=== PATIENT | female | born 1985 | race Caucasian/White ===

== ENCOUNTER 2022-04-29 08:05 | Emergency (ER) | payer OTHER, SELFPAY ==
[2022-04-29 09:04] VITALS: BP 117/78; PULSE 85; RESP 20; TEMP 36.4; O2SAT 99; BMI 42.0
[2022-04-29 09:19] LABS: Appearance Urine Clear; Color Urine Yellow; Glucose Urine UA Negative (Negative); Leukocyte Esterase Urine Trace (Negative); Nitrite Urine Negative (Negative); Specific Gravity - Urine 1.015 (1.005-1.025); UMIC TRIGGER UACC YES; Urine Blood Small (1+) (Negative); Urine Ketones Negative (Negative); Urine Protein Negative (Neg-Trace)
[2022-04-29 09:31] LABS: Bacteria Urine Trace (None Seen); Hyaline Casts Urine 0-2 /LPF (0-2); UACC Culture Trigger YES
--- NOTE | 2022-04-29 10:41 | ED.FEMALEGU ---
HPI - Female Genitourinary General Chief complaint: Urogenital-Female Stated complaint: Lower back pain Time Seen by Provider: 04/29/22 10:40 Source: patient Mode of arrival: ambulatory Limitations: no limitations History of Present Illness HPI Narrative: 36 yo female presents to the ER for evaluation of foul smelling urine for the last 1 week associated with mild dysuria, left sided back pain and nausea. She states her symptoms started with foul-smelling urine about 1 week ago. She states she intermittently has some dysuria as well in addition to some urinary frequency. She is intermittently nauseous. Yesterday she started with left lower back pain as well. No abdominal pain. No vomiting. No fevers. Denies chance of . No vaginal discharge. She states the back pain is intermittent and feels like a bruise. MD elicited complaint: dysuria and back pain Onset (ago): week(s) (1) Location of symptoms: suprapubic and other (back) Severity: moderate Female Urogenital Radiation: Non-Radiating Severity scale (1-10): 5 Quality of pain: aching Consistency: intermittent Vaginal discharge: none Vaginal bleeding: none Urinary symptoms: Dysuria, Frequency and Foul Smelling Urine Exacerbating factors: urination Relieving factors: none and urination Associated symptoms: nausea and back pain Treatment prior to arrival: none Patient : No Related Data Previous Rx's Medication Instructions Recorded levofloxacin 500 mg tablet 500 mg PO DAILY #9 tabs 04/29/22 Allergies Allergy/AdvReac Type Severity Reaction Status Date / Time No Known Allergies Allergy Verified 04/29/22 09:10 [No Known Allergies*] Review of Systems Review of Systems: Constitutional: No Fever, No Chills ENT/Mouth: No sore throat, No Rhinorrhea Cardiovascular: No Chest Pain, No SOB Respiratory: No Cough, No Sputum Gastrointestinal: + Nausea, No Vomiting, No Diarrhea, No abdominal Pain Genitourinary: + Dysuria, + Urinary Frequency, No Hematuria Musculoskeletal: No joint pain, + Myalgias Skin: No Skin Lesions, No rash Neuro: No Weakness, No Dizziness, No Headache Heme/Lymph: No Bruising, No Lymphadenopathy PMFSH Social History Social History Advance Directives: No Advance Directives Information Provided: No Physical Exam Vital Signs: Vital Signs: Last Vital Signs Temp 97.5 F 04/29/22 09:04 Pulse 85 04/29/22 09:04 Resp 20 04/29/22 09:04 BP 117/78 04/29/22 09:04 Pulse Ox 99 04/29/22 09:04 O2 Del Method 04/29/22 09:04 BMI result Body Mass Index 42.0 Appearance: Alert. Oriented X3. No acute distress. Eyes: Pupils equal, round and reactive to light. ENT: Pharynx normal. Neck: Normal inspection. Neck supple. CVS: Normal heart rate and rhythm. Pulses normal. Respiratory: No respiratory distress. Breath sounds normal. Abdomen: Obese, Soft and nontender. +BS x4. Mild CVA tenderness on the left side, left sided lumbar area soft tissue tenderness Skin: Skin warm and dry. Normal skin color. Normal skin turgor. No rashes. Extremities: No lower extremity edema. Neuro: Oriented X 3.Grossly normal, nonfocal Course Course Course Narrative: 36-year-old female presents to the ER for evaluation of left lower back pain in addition to dysuria and foul-smelling urine, worsening over the last 1 week. She is afebrile and nontoxic appearing on arrival. No abdominal pain or tenderness. Urinalysis is consistent with infection, small blood. Doubt kidney stone with her clinical presentation. Will check basic labs and renal function. PO levaquin ordered. Anticipate d/c home. Reevaluation(s) Reevaluation #1: Labs unremarkable. Patient is comfortable. Will treat with pyelonephritis. Given return precautions if pain were to worsen. Stable for d/c home. Medications Administered Discontinued Medications Generic Name Dose Route Start Last Admin Trade Name Sohan PRN Reason Stop Dose Admin Levofloxacin 500 mg 04/29/22 10:48 04/29/22 11:11 Levofloxacin 500 Mg Tablet PO 04/29/22 10:49 500 mg ONCE ONE Administration Medical Decision Making Lab Data Result Diagrams: 04/29/22 11:01 04/29/22 11:01 Labs: Lab Results 04/29/22 04/29/22 04/29/22 Range/Units 09:13 09:13 11:01 WBC 6.8 (4.8-10.8) X10*3/uL RBC 4.42 (4.20-5.50) X10*6/uL Hgb 11.5 L (12.0-16.0) g/dl Hct 35.5 L (37.0-47.0) % MCV 80.3 (80.0-98.0) fL MCH 26.0 L (27.0-33.0) pg MCHC 32.4 (31.0-35.0) g/dl RDW 14.4 (11.0-16.0) % Plt Count 264 (160-400) X10*3/uL MPV 9.7 (9.4-12.3) fL Immature Gran % (Auto) 0.1 (0.0-0.4) % Neut % (Auto) 63.4 (45-73) % Lymph % (Auto) 29.1 (20-40) % [place] % (Auto) 4.3 (2-11) % Eos % (Auto) 2.5 (0-4) % Baso % (Auto) 0.6 (0-2) % Lymph # (Auto) 2.0 (1.2-4.9) X10*3/uL [place] # (Auto) 0.3 (0.1-1.2) X10*3/uL Eos # (Auto) 0.2 (0.0-0.4) X10*3/uL Baso # (Auto) 0.0 (0.0-0.2) X10*3/uL Abs Immat Gran (auto) 0.01 (0.00-0.03) X10*3/uL Absolute Neuts (auto) 4.3 (2.0-8.3) x10*3/uL Absolute Nucleated RBC 0.000 (0.0-0.012) X10*3/uL Nucleated RBC % (auto) 0.0 (0.0-0.2) /100WBC Sodium (135-145) mmol/L Potassium (3.3-5.1) mmol/L Chloride (96-108) mmol/L Carbon Dioxide (22-29) mmol/L Anion Gap (12-20) BUN (9-16) mg/dL Creatinine (0.5-1.4) mg/dL Estim Creat Clear Calc Estimated GFR Random Glucose (60-115) mg/dL Calcium (8.4-10.2) mg/dL Magnesium (1.6-2.6) mg/dL Urine Color Yellow Urine Appearance Clear Urine pH 6.0 (5.0-9.0) Ur Specific [place] 1.015 (1.005-1.025) Urine Protein Negative (Neg-Trace) mg/dL Urine Glucose (UA) Negative (Negative) mg/dL Urine Ketones Negative (Negative) mg/dL Urine Blood Small (1+) H (Negative) Urine Nitrite Negative (Negative) Ur Leukocyte Esterase Trace H (Negative) Urine RBC 3-5 H (0-2) /HPF Urine WBC 6-10 H (0-5) /HPF Ur Squamous Epith Cells 3-5 (0-2) /HPF Urine Bacteria Trace (None Seen) Hyaline Casts 0-2 (0-2) /LPF Urine Test NEGATIVE (NEGATIVE) 04/29/22 Range/Units 11:01 WBC (4.8-10.8) X10*3/uL RBC (4.20-5.50) X10*6/uL Hgb (12.0-16.0) g/dl Hct (37.0-47.0) % MCV (80.0-98.0) fL MCH (27.0-33.0) pg MCHC (31.0-35.0) g/dl RDW (11.0-16.0) % Plt Count (160-400) X10*3/uL MPV (9.4-12.3) fL Immature Gran % (Auto) (0.0-0.4) % Neut % (Auto) (45-73) % Lymph % (Auto) (20-40) % [place] % (Auto) (2-11) % Eos % (Auto) (0-4) % Baso % (Auto) (0-2) % Lymph # (Auto) (1.2-4.9) X10*3/uL [place] # (Auto) (0.1-1.2) X10*3/uL Eos # (Auto) (0.0-0.4) X10*3/uL Baso # (Auto) (0.0-0.2) X10*3/uL Abs Immat Gran (auto) (0.00-0.03) X10*3/uL Absolute Neuts (auto) (2.0-8.3) x10*3/uL Absolute Nucleated RBC (0.0-0.012) X10*3/uL Nucleated RBC % (auto) (0.0-0.2) /100WBC Sodium 138 (135-145) mmol/L Potassium 4.0 (3.3-5.1) mmol/L Chloride 105 (96-108) mmol/L Carbon Dioxide 28 (22-29) mmol/L Anion Gap 9 L (12-20) BUN 10 (9-16) mg/dL Creatinine 0.70 (0.5-1.4) mg/dL Estim Creat Clear Calc 175.5 Estimated GFR > 60 Random Glucose 85 (60-115) mg/dL Calcium 9.1 (8.4-10.2) mg/dL Magnesium 2.0 (1.6-2.6) mg/dL Urine Color Urine Appearance Urine pH (5.0-9.0) Ur Specific [place] (1.005-1.025) Urine Protein (Neg-Trace) mg/dL Urine Glucose (UA) (Negative) mg/dL Urine Ketones (Negative) mg/dL Urine Blood (Negative) Urine Nitrite (Negative) Ur Leukocyte Esterase (Negative) Urine RBC (0-2) /HPF Urine WBC (0-5) /HPF Ur Squamous Epith Cells (0-2) /HPF Urine Bacteria (None Seen) Hyaline Casts (0-2) /LPF Urine Test (NEGATIVE) Critical Care Time Critical Care Time Critical Care Time: No Discharge Plan Discharge Clinical Impression: Pyelonephritis Patient Disposition: Home, Self-Care Instructions: Kidney Infection (ED) Additional Instructions: Your urine test showed infection. Your labs were unremarkable. Take the prescribed antibiotic as directed - start tomorrow morning, you were given 1st dose in the ER today. Make sure you are drinking plenty of water Take Motrin and Tylenol as needed for pain Follow up with your doctor as needed If you develop new or worsening symptoms call 911 or come back to the ER for further evaluation. Prescriptions: New levofloxacin 500 mg tablet 500 mg PO DAILY Qty: 9 0RF Stand Alone Forms: Work/School Release
[2022-04-29 11:03] LABS: UPreg QC Valid YES; Urine Pregnancy NEGATIVE (NEGATIVE)
[2022-04-29 11:09] LABS: Basophils Percent Auto 0.6 % (0-2); Eosinophils Absolute Auto 0.2 X10*3/uL (0.0-0.4); Eosinophils Percent Auto 2.5 % (0-4); Hematocrit 35.5 % (37.0-47.0); Hemoglobin 11.5 g/dl (12.0-16.0); Imm Gran Abs Auto 0.01 X10*3/uL (0.00-0.03); Imm Gran Pct Auto 0.1 % (0.0-0.4); Lymphocytes Percent Auto 29.1 % (20-40); MANUAL DIFF FLAG NO; Mean Corpuscular HGB Conc 32.4 g/dl (31.0-35.0); Mean Corpuscular Volume 80.3 fL (80.0-98.0); Mean Platelet Volume 9.7 fL (9.4-12.3); Monocytes Absolute Auto 0.3 X10*3/uL (0.1-1.2); Monocytes Percent Auto 4.3 % (2-11); Neutrophils Absolute Auto 4.3 x10*3/uL (2.0-8.3); Neutrophils Percent Auto 63.4 % (45-73); Platelet Count 264 X10*3/uL (160-400); Red Blood Count 4.42 X10*6/uL (4.20-5.50); Red Cell Distribution Width 14.4 % (11.0-16.0); White Blood Count 6.8 X10*3/uL (4.8-10.8)
[2022-04-29] MEDS: levoFLOXacin 500 MG TABLET PO (11:11)
[2022-04-29 11:31] LABS: Anion Gap 9 (12-20); Blood Urea Nitrogen 10 mg/dL (9-16); Calcium 9.1 mg/dL (8.4-10.2); Carbon Dioxide 28 mmol/L (22-29); Chloride 105 mmol/L (96-108); Creatinine Clr Calc Pharmacy 175.5; Estimated Glomerular Filt Rate > 60; Glucose Random 85 mg/dL (60-115); Sodium 138 mmol/L (135-145)
== END 2022-04-29 11:55 | disposition home or self-care (01) ==
PROVIDERS: Physician Assistant; Emergency Provider Student in an Organized Health Care Education/Training Program
DX: N12 Tubulo-interstitial nephritis, not specified as acute or chronic (principal); R30.0 Dysuria; M54.50 Low back pain, unspecified; R35.0 Frequency of micturition; Z79.899 Other long term (current) drug therapy
CPT/HCPCS: 36415; 80048; 81001; 81025; 83735; 85025; 87086; 99282; 99283

== ENCOUNTER 2022-09-18 08:37 | Emergency (ER) | payer MEDICAID, SELFPAY ==
[2022-09-18 08:40] VITALS: BP 136/82; PULSE 84; RESP 18; TEMP 36.8; O2SAT 100; BMI 40.7
[2022-09-18 09:03] LABS: Appearance Urine Clear; Color Urine Yellow; Glucose Urine UA Negative (Negative); Leukocyte Esterase Urine Negative (Negative); Nitrite Urine Negative (Negative); PH 5.5 (5.0-9.0); UMIC TRIGGER UACC YES; Urine Blood Small (1+) (Negative); Urine Ketones Negative (Negative); Urine Protein Negative (Neg-Trace)
[2022-09-18 09:04] LABS: UPreg QC Valid YES; Urine Pregnancy NEGATIVE (NEGATIVE)
--- NOTE | 2022-09-18 09:13 | ED_ITS ---
HPI - Female Genitourinary General Chief complaint: Urogenital-Female Stated complaint: vaginal infection Time Seen by Provider: 09/18/22 08:53 Source: patient Mode of arrival: ambulatory Limitations: no limitations History of Present Illness HPI Narrative: 36 yo female with a pmh of pylonephritis,4 c-sections and a miscarriage this past June presenting with 4 days of pelvic and right sided lower back pain. She was here in April for pylonephritis, and believes her pain feels similar to that. She believes her symptoms are worsening. She endorses increased vaginal discharge that she describes as white and odorus, as well as vaginal itching. She denies new vaginal bleeding, and dysuria. She endorses urinary frequency, mentioning she has been holding it in at work though, as well as right lower back pain that goes down her leg. She describes her leg pain as bruise like, and states she cannot sleep on her right side. She states she has gained a lot of weight recently and mentions her back pain is likely from that. She endorses headache, and shortness of breath which she believes is due to increased anxiety. MD elicited complaint: vaginal discharge, pelvic pain, genital itching and back pain Pertinent past history: pyelonephritis and prior miscarriages Onset (ago): day(s) (4) Location of symptoms: vaginal, pelvis and low back Vaginal discharge: white Vaginal bleeding: none Urinary symptoms: Urgency Associated symptoms: headaches, shortness of breath and back pain Sexual activity: Yes Patient : No Related Data Previous Rx's Medication Instructions Recorded levofloxacin 500 mg tablet 500 mg PO DAILY #9 tabs 04/29/22 metronidazole 500 mg tablet 500 mg PO Q12H 5 days #10 tabs 09/18/22 Allergies Allergy/AdvReac Type Severity Reaction Status Date / Time No Known Allergies Allergy Verified 04/29/22 09:10 [No Known Allergies*] Review of Systems Review of Systems: Yes all other systems are reviewed and are negative [facility] Past Medical History [facility] Narrative: Appearance: Alert. Oriented X3. No acute distress. Head: normocephalic, atraumatic. Neck: Normal inspection. Neck supple. CVS: Normal heart rate and rhythm. Pulses normal. Respiratory: No respiratory distress. Breath sounds normal. Abdomen: Soft tender in her RLQ and pelvic area with palpation. +BS x4 Pelvic: Skin: Skin warm and dry. Normal skin color. Normal skin turgor. No rashes. Back: Mild right flank pain, worse below the flank area. Extremities: No lower extremity edema. No joint swelling. Pain with ROM of right lower extremity. Inability to left right leg in straight rasie test. Neuro/psych: Oriented X 3. No motor deficit. No sensory deficit. . Normal speech and cognition. Social History Social History Advance Directives: No Patient : No Physical Exam Vital Signs: Vital Signs: Last Vital Signs Temp 98.2 F 09/18/22 08:40 Pulse 84 09/18/22 08:40 Resp 18 09/18/22 08:40 BP 136/82 09/18/22 08:40 Pulse Ox 100 09/18/22 08:40 O2 Del Method Room Air 09/18/22 08:40 BMI result Body Mass Index 40.7 Appearance: Alert. Oriented X3. No acute distress. Head: normocephalic, atraumatic. CVS: Normal heart rate and rhythm. Pulses normal. Respiratory: No respiratory distress. Breath sounds normal. Abdomen: Obese Soft with mild RLQ and pelvic tenderness. no rebound or guarding, normal active +BS x4 back: No flank pain. Pain in her right lower back. Pelvic: normal external genitalia, moderate amount of white, milky discharge from cervix and in vaginal canal, no CMT, no adenexal tenderness Skin: Skin warm and dry. Normal skin color. Normal skin turgor. No rashes. Extremities: No lower extremity edema. No joint swelling. Neuro/psych: Oriented X 3. No motor deficit. No sensory deficit. CN II-XII intact. Normal speech and cognition. Medical Decision Making Medical Decision Making MDM Narrative: Patient presented with symptoms most consistnet with Bacterial Vaginosis , and concurrent right lower back pain most consistent with referred pain from the front or sciatica, less consistent with PID or pylonephritis. Her UA was normal , and she had no flank pain so this is less likely a UTI or pylo. On exam she villalobos d white discharge that did not appear yeasty. She has not had sex since May, so this is less likely to be an STD. 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 will call if other test are positive. stable for d/c home. Differential Diagnosis Differential Diagnoses: The differential diagnosis associated with the presentat ion includes BV with referred pain Yeast chlamydia + Gonorrhea appendicitis PID pylo Lab Data MDM Lab Attestation statement: I reviewed the patient's lab results. Labs: Lab Results 09/18/22 09/18/22 Range/Units 08:52 08:52 Urine Color Yellow Urine Appearance Clear Urine pH 5.5 (5.0-9.0) Ur Specific [place] 1.020 (1.005-1.025) Urine Protein Negative (Neg-Trace) mg/dL Urine Glucose (UA) Negative (Negative) mg/dL Urine Ketones Negative (Negative) mg/dL Urine Blood Small (1+) H (Negative) Urine Nitrite Negative (Negative) Ur Leukocyte Esterase Negative (Negative) Urine RBC 3-5 H (0-2) /HPF Urine WBC 0-5 (0-5) /HPF Ur Squamous Epith Cells 3-5 (0-2) /HPF Urine Bacteria None Seen (None Seen) Hyaline Casts 0-2 (0-2) /LPF Urine Test NEGATIVE (NEGATIVE) External Record Review External record reviewed: Outpatient record, Prior outpatient labs and Prior outpatient radiology Prescription Management I considered prescription management with: Antibiotic Critical Care Time Critical Care Time Critical Care Time: No Discharge Plan Discharge Clinical Impression: Bacterial vaginosis Patient Disposition: Home, Self-Care Instructions: Bacterial Vaginosis (ED) Additional Instructions: Today we performed an evaluation for pelvic and lower back pain as well as vaginal discharge. We performed a pelvic exam and swabbed for bacterial vaginosis. We will treat for bacterial vaginosis with Metronidzole 500mg q12 for five days. Avoid alcohol while on this medication. Prescriptions: New metronidazole 500 mg tablet 500 mg PO Q12H 5 Days Qty: 10 0RF No Action levofloxacin 500 mg tablet 500 mg PO DAILY Qty: 9 0RF
[2022-09-18 09:20] LABS: Bacteria Urine None Seen (None Seen); Hyaline Casts Urine 0-2 /LPF (0-2); WBC Urine 0-5 /HPF (0-5)
--- NOTE | 2022-09-18 10:10 | PC.NURSE ---
Pelvic exam performed by PA, swabs obtained and sent.
[2022-09-18 11:50] LABS: CT PCR NOT DETECTED (Not Detect.); NG PCR NOT DETECTED (Not Detect.)
[2022-09-19 11:41] LABS: BV Int Neg Control Negative (Negative); BV Int Pos Control Positive (Positive)
== END 2022-09-18 10:47 | disposition home or self-care (01) ==
PROVIDERS: Physician Assistant; Emergency Provider Student in an Organized Health Care Education/Training Program
DX: N76.0 Acute vaginitis (principal)
CPT/HCPCS: 0353U; 81001; 81003; 81025; 87480; 87510; 87660; 99282; 99283